=== PATIENT | male | born 1970 | race Caucasian/White ===

== ENCOUNTER 2017-07-20 15:52 | Emergency (ER) | payer MEDICAID, OTHER ==
[~2017-07-20] VITALS: Ht 177.8 cm; Wt 86.2 kg
[2017-07-20 15:59] VITALS: BP 127/79
== END 2017-07-20 18:20 | disposition left against medical advice (07) ==
LOC: ER 15:53
DX: R45.851 Suicidal ideations (principal); Z53.21 Procedure and treatment not carried out due to patient leaving prior to being seen by health care provider